=== PATIENT | female | born 2000 | race African-American/Black ===

== ENCOUNTER → 2020-08-26 | Outpatient (CLI) | payer OTHER ==
--- NOTE | 2020-08-26 22:57 | REP ---
INDICATION: 35+ GROWTH COMPARISON: None. TECHNIQUE: Transabdominal obstetrical ultrasound with color Doppler evaluation. FINDINGS: Examination demonstrates a single live intrauterine in cephalic presentation. motion is identified by technologist. Placenta is noted anterior and grade 2 without evidence for placenta previa or abruption. Amniotic fluid volume is low-normal (VERONICA equals 8 cm). Selected gestational age: 36 weeks 0 days with RACHEL 09/23/2020. Gestational age by current measurements 34 weeks 6 days with RACHEL 10/01/2020. FHR equals 122 beats per minute. BPD: 8.8 cm at 35 weeks 2 days HC: 31.4 cm at 35 weeks 1 day AC: 29.6 cm at 33 weeks 4 days FL: 7.1 cm at 36 weeks 4 days HL: 6.0 cm at 34 weeks 4 days HC/AC: 1.06 Estimated weight 2470 grams (17thpercentile). Umbilical artery SD ratio: 2.58 (1.64-3.51) IMPRESSION: Examination suggests small for gestational age fetus with estimated weight falling within normal range. <Electronically signed by Jose Bui > 08/26/20 [id number]
== END ==
LOC: M RAD 13:15
PROVIDERS: ATTEND Registered Nurse
DX: Z36.89 Encounter for other specified antenatal screening (principal)

== ENCOUNTER 2020-09-12 11:52 | Inpatient (IN) | payer OTHER ==
[2020-09-12] VITALS (7 sets, daily range): BP systolic 111–122; BP diastolic 62–80
[~2020-09-12] VITALS: Ht 177.8 cm; Wt 98.9 kg
[2020-09-12] MEDS ORDERED: PREN29CH2 PO (12:27)
[2020-09-12] MEDS ORDERED: LACTATED RINGER'S 1000 ML IV STA (12:41)
[2020-09-12] MEDS ORDERED: LIDOCAINE 1% MDV 20ML VIAL INFIL PRN (12:45)
[2020-09-12] MEDS ORDERED: OXYTOCIN DRIP 30 UNITS in IV 1 EA IV PRN ×4 (12:45)
[2020-09-12] MEDS ORDERED: CARBOPROST TROMETHAMINE 250 MCG/ML AMP IM PRN (12:45)
[2020-09-12] MEDS ORDERED: METHYLERGONOVINE MALEATE 0.2 MG/ML VIAL (J2210) IM PRN (12:45)
[2020-09-12] MEDS ORDERED: TRANEXAMIC ACID INJection 1,000 MG in NS 100 ML IV PRN (12:45)
[2020-09-12] MEDS: LR 1,000 ML IV SCH ×2 (13:43→20:45)
[2020-09-12 13:58] LABS: BASO % 0.1 % (0.0-1.0); EOS % 0.4 % (0.0-3.0); HEMATOCRIT 35.3 % (36.0-47.0); HEMOGLOBIN 11.8 g/dl (12.0-15.5); LYMPH # 1.4 10^3/uL (1.5-5.0); LYMPH % 14.6 % (24.0-44.0); MEAN CORPUSCULAR HEMOGLOBIN 29.6 pg (27.0-33.0); MEAN CORPUSCULAR HGB CONC 33.4 g/dl (32.0-36.5); MEAN CORPUSCULAR VOLUME 88.5 fl (80.0-96.0); MONO # 0.8 10^3/uL (0.0-0.8); NEUTROPHILS # 7.3 10^3/uL (1.5-8.5); NEUTROPHILS % 76.6 % (36.0-66.0); PLATELET COUNT, AUTOMATED 253 10^3/uL (150-450); RED BLOOD COUNT 3.99 10^6/uL (4.00-5.40); WHITE BLOOD COUNT 9.5 10^3/uL (4.0-10.0)
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
--- NOTE | 2020-09-12 15:56 | IPNPDOC ---
Obstetrical Progress Note Date of Service Sep 12, 2020 Subjective Starting to feel more cramping. Nice bulb still in place. Spouse and mother at bedside for support. Assessment and Plan Additional Comments A/P 20yo G3 P 0 at 38+4 wks gestation presents to L&D for induction of labor due to IUGR. B positive/GBS negative/RI/ FHR Cat 1 tracing, reassuring. Now on intermittent monitoring. Double lumen nice bulb still in place, plan to start pitocin once it is out. Address pain needs as they arise. Reviewed option for IV pain medication. Anticipate Consult physician service as needed. Report given to Dr. Aleman for transfer of care at end of shift. REN WALTON CNM Sep 12, 2020 15:56
[2020-09-13] VITALS (36 sets, daily range): BP systolic 98–141; BP diastolic 51–88
--- NOTE | 2020-09-13 08:25 | IPNPDOC ---
Obstetrical Progress Note Date of Service Sep 13, 2020 Subjective Pt OOB returning from shower, denies pain Objective Vital Signs Date Time Temp Pulse Resp B/P (MAP) Pulse Ox O2 Delivery O2 Flow Rate FiO2 09/13/20 00:06 94 118/71 (87) 09/12/20 18:56 20 09/12/20 18:30 99.3 Tocometer Contractions: Yes Frequency: irregular Strength: palpated as mild Sterile Vaginal Examination Dilation: None (cervical catheter in place) Assessment and Plan Age: 20 : 3 Term: 0 Pre-term: 0 Abortions: 2 Livin EGA at Admission: 38 (+5) Group B Streptococcus: Negative Anticipate: Vaginal Delivery Additional Comments OOB moving after shower, may eat breakfast, NST after eating, encourage oral hydration, consider additional induction agents, evaluate for change as indicated, anticipate vaginal delivery LIZZY FAULKNER CNM Sep 13, 2020 08:25
[2020-09-13] MEDS ORDERED: OXYTOCIN DRIP 30 UNITS in IV 1 EA IV SCH (09:35)
--- NOTE | 2020-09-13 09:47 | IPNPDOC ---
Obstetrical Progress Note Date of Service Sep 13, 2020 Subjective Pt states feeling comfortable. Reviewed counseling on additional methods of induction including cytotec and pitocin with expressed understanding by patient and her spouse. Objective Vital Signs Date Time Temp Pulse Resp B/P (MAP) Pulse Ox O2 Delivery O2 Flow Rate FiO2 09/13/20 00:06 94 118/71 (87) 09/12/20 18:56 20 09/12/20 18:30 99.3 Assessment Heart Rate (FHR): 130 Variability: Moderate Accelerations: Positive Decelerations: None Heart Rate Tracing: Category I Tocometer Contractions: Yes Frequency: irregular Duration: greater than 60 seconds Strength: palpated as mild, resting tone palp/soft Sterile Vaginal Examination Dilation: 5 cm (cervical catheter came out with gentle traction prior to exam) Effacement (%): 80% Station: -2 Cervical Consistency: Soft Cervical Position: Middle Postion/Presentation: Cephalic presentation Assessment and Plan Age: 20 : 3 Term: 0 Pre-term: 0 Abortions: 2 Livin Weeks & Days 38+5 Status: Reassuring Group B Streptococcus: Negative Anticipate: Vaginal Delivery Additional Comments LR @125ml/hr, continuous efm x2, initiate pitocin induction and titrate per protocol, monitor for change in or maternal status, encourage frequent maternal movement, anticipate vaginal delivery LIZZY FAULKNER CNM Sep 13, 2020 09:47
[2020-09-13] MEDS: LR 1,000 ML IV SCH ×3 (12:45→20:45)
--- NOTE | 2020-09-13 14:10 | IPNPDOC ---
Obstetrical Progress Note Date of Service Sep 13, 2020 Subjective Pt states feeling increased discomfort with contractions Objective Vital Signs Date Time Temp Pulse Resp B/P (MAP) Pulse Ox O2 Delivery O2 Flow Rate FiO2 09/13/20 13:37 74 117/75 (89) 09/13/20 10:57 98.3 16 Room Air Assessment Heart Rate (FHR): 130 Variability: Moderate Accelerations: Positive Decelerations: None Heart Rate Tracing: Category I Tocometer Contractions: Yes Frequency: regular (q5 min on 16mu pitocin) Duration: greater than 60 seconds Strength: palpated as moderate, resting tone palp/soft Sterile Vaginal Examination Dilation: 7 cm (AROM clear with exam) Effacement (%): 90% Station: -2 Cervical Consistency: Soft Cervical Position: Posterior Postion/Presentation: Cephalic presentation Assessment and Plan Age: 20 : 3 Term: 0 Pre-term: 0 Abortions: 2 Livin Status: Reassuring Group B Streptococcus: Negative Anticipate: Vaginal Delivery Additional Comments lr @125ml/hr, pitocin decreased to 8mu after AROM clear, continue to titrate per protocol, continuous efm x2, monitor for change in or maternal status, encourage frequent maternal movement, anticipate vaginal delivery. LIZZY FAULKNER CNM Sep 13, 2020 14:10
[2020-09-13] MEDS ORDERED: FENTANYL 2MCG/ML ROPIVACAINE 0.2% IN 0.9% NACL 100ML IVBAG As Ordered ONE (16:17)
--- NOTE | 2020-09-13 16:17 | IPNPDOC ---
Obstetrical Progress Note Date of Service Sep 13, 2020 Subjective Pt c/o pressure and urge to push Objective Vital Signs Date Time Temp Pulse Resp B/P (MAP) Pulse Ox O2 Delivery O2 Flow Rate FiO2 09/13/20 15:16 77 122/78 (93) 09/13/20 14:58 98.2 20 Room Air Assessment Heart Rate (FHR): 120 Variability: Moderate Accelerations: Positive Decelerations: None Heart Rate Tracing: Category I Tocometer Contractions: Yes Frequency: every 2-5 min. (on pitocin induction) Duration: greater than 60 seconds Strength: palpated as moderate, resting tone palp/soft Sterile Vaginal Examination Dilation: 5 cm (stretches to 7cm) Effacement (%): 90% Station: -2 Cervical Consistency: Soft Cervical Position: Posterior Postion/Presentation: Cephalic presentation Assessment and Plan Age: 20 : 3 Term: 0 Pre-term: 0 Abortions: 2 Livin Status: Reassuring Group B Streptococcus: Negative Anticipate: Vaginal Delivery Additional Comments Pt requesting epidural anesthesia. LR bolus 1000ml then return to 125ml/hr, consult anesthesia, continue to titrate pitocin augmentation pre protocol, continuous efm x2, monitor for change in or maternal status, evaluate for change as indicated, anticipate vaginal delivery. LIZZY FAULKNER CNM Sep 13, 2020 16:17
[2020-09-13] MEDS ORDERED: EPIDURAL/PCA KEYS XX PRN (16:30)
[2020-09-13] MEDS ORDERED: REFRIGERATOR IV KEYS XX PRN (16:30)
[2020-09-13] MEDS ORDERED: LACTATED RINGER'S 1000 ML IV PRN (16:30)
[2020-09-13] MEDS ORDERED: diphenhydrAMINE 50MG/ML VIAL (J1200) IV PRN (16:30)
[2020-09-13] MEDS ORDERED: EPIDURAL COMMENT XX SCH (16:30)
[2020-09-13] MEDS ORDERED: ONDANSETRON 4MG/2ML VIAL IV PRN (16:30)
[2020-09-13] MEDS ORDERED: NALOXONE INJ 0.4MG/1ML VIAL (J2310 PER 1MG) IV PRN (16:30)
[2020-09-13] MEDS: FENTANYL/ROPIVACAINE/NACL BAG 100 ML EPIDURAL SCH (17:15)
[2020-09-13] MEDS: ePHEDrine SULFATE 25 MG/5 ML(5MG/ML) SYRINGE IV PRN ×2 (19:46→20:16)
[2020-09-13] MEDS ORDERED: ACETAMINOPHEN TAB 650MG DOSE (2X325MG) PO PRN (23:00)
[2020-09-13] MEDS ORDERED: DOCUSATE SODIUM 100MG CAPSULE PO PRN (23:00)
[2020-09-13] MEDS ORDERED: IBUPROFEN 600MG TAB PO PRN (23:00)
--- NOTE | 2020-09-13 23:07 | DNPDOC ---
[facility] Delivery Note Delivery Note DATE OF DELIVERY: 09/13/20 PREDELIVERY DIAGNOSIS: 38+5 weeks gestation. growth restriction, uncomplicated. POST DELIVERY DIAGNOSIS: Same + delivered. PROCEDURE: Induction of labor. Vaginal delivery. CATTLE DRIVER: Dr. Castro Welsh DO ANESTHESIA: epidural. ESTIMATED BLOOD LOSS: 150 mL. FINDINGS: 3090g, Score 8/9, nuchal cord times 0. DELIVERY SUMMARY: Ms. Holly is a 20yo at 38+5 who underwent induction of labor for uncomplicated growth restriction with a nice balloon and pitocin. She progressed to AL/C/+3 and the anterior lip was easily reduced with light maternal pushing. She then pushed to deliver the head followed by the body without complications. There was a left compound posterior arm. The baby had spontaneous movement and cry. The cord clamping was delayed 60s then cut by the father of the baby. Cord blood and gasses were obtained. The placenta delivered in-tact with gentle downward traction. The uterus was firm and bleeding scant with pitocin. There was a small pat-urethral abrasion that did not require repair. The sponge, lap, and needle counts were correct. There were no complications. CASTRO WELSH DO Sep 13, 2020 23:07
[2020-09-13 23:12] LABS: CORD GAS ABE A -4.3; CORD GAS ABE V -2.8; CORD GAS HCO3 A 22.4 MEQ/L; CORD GAS HCO3 V 21.9 MEQ/L; CORD GAS O2 SAT A 64.6 %; CORD GAS O2 SAT V 73.3 %; CORD GAS PCO2 A 47.3 mmHg; CORD GAS PCO2 V 37.8 mmHg; CORD GAS PH A 7.294 UNITS; CORD GAS PH V 7.38 UNITS; CORD GAS PO2 V 30.1 mmHg; CORD GAS SBC A 20.2 MEQ/L; CORD GAS SBC V 21.6 MEQ/L; CORD GAS TCO2 A 23.9 MEQ/L
[2020-09-14 00:45] VITALS: BP 138/78
[2020-09-14] MEDS: IBUPROFEN 800 MG TAB PO PRN ×2 (03:44→13:43)
[2020-09-14] MEDS: FENTANYL/ROPIVACAINE/NACL BAG 100 ML EPIDURAL SCH (03:52)
[2020-09-14] MEDS: LR 1,000 ML IV SCH (04:45)
[2020-09-14 06:00] VITALS: BP 117/56
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
[2020-09-14] MEDS: ACETAMINOPHEN 500 MG TAB PO PRN ×2 (07:02→15:36)
[2020-09-14] MEDS: PRENATAL VITAMINS CHEWABLE TABLET PO SCH (08:51)
[2020-09-15] MEDS: IBUPROFEN 800 MG TAB PO PRN (01:01)
[2020-09-15 06:00] VITALS: BP 109/73
[2020-09-15] MEDS ORDERED: IBUP80TA PO (07:00)
[2020-09-15] MEDS ORDERED: ACET1TAB55 PO (07:00)
--- NOTE | 2020-09-15 07:02 | DS.PDOC ---
Discharge Summary General Date of Admission Sep 12, 2020 at 11:52 Date of Discharge September 15, 2020 Discharge Summary HOSPITAL COURSE: Ms. Holly is a 20 yo G3 now P1 who underwent an uncomplicated on 13Sep2020 after being admitted for an IOL for IUGR Her course was unremarkable. On her day of discharge she met all appropriate discharge criteria. She was ambulating, voiding, tolerating a regular diet, and had minimal lochia. DISCHARGE MEDICATIONS: Please see below. ALLERGIES: Please see below. PHYSICAL EXAMINATION ON DISCHARGE: VITAL SIGNS: Please see below. GENERAL: AAOX3, NAD ABDOMINAL EXAMINATION: Fundus firm at U-2. No fundal tenderness EXTREMITIES: No edema PSYCHIATRIC EXAMINATION: Affect appropriate LABORATORY DATA: Please see below. ACTIVITY: Pelvic rest for 6 weeks DIET: Regular DISCHARGE PLAN: Discharge home DISPOSITION: Discharge home on 15Sep2020 DISCHARGE INSTRUCTIONS: 1. Nothing in the vagina for 6 weeks ITEMS TO FOLLOWUP ON ON OUTPATIENT: 1. Call to schedule a visit for 6 weeks post delivery DISCHARGE CONDITION: Stable. TIME SPENT ON DISCHARGE: Greater than 20 minutes. Kerwin Gordillo DO Vital Signs/I&Os Vital Signs Date Time Temp Pulse Resp B/P (MAP) Pulse Ox O2 Delivery O2 Flow Rate FiO2 09/15/20 06:00 97.5 66 18 109/73 (85) 98 Room Air Discharge Medications Scheduled No115/Iron/Folic Acid ( 19 Chewable Tablet) 1 Each Tab.chew, 1 TAB PO DAILY, (Reported) Scheduled PRN Acetaminophen (Acetaminophen) 325 Mg Tablet, 650 MG PO Q4HP PRN for PAIN LEVEL 1-5 Ibuprofen (Ibuprofen) 800 Mg Tablet, 800 MG PO Q8HP PRN for PAIN LEVEL 6-10 Allergies Coded Allergies: No Known Allergies (Unverified , 09/12/20) KERWIN GORDILLO DO Sep 15, 2020 07:02
[2020-09-15] MEDS: PRENATAL VITAMINS CHEWABLE TABLET PO SCH (09:00)
== END 2020-09-15 13:30 | disposition home or self-care (01) | DRG 807 ==
LOC: M LDI 11:52 → M OBS 09-14 00:39
PROVIDERS: ADMIT Advanced Practice Midwife; ATTEND Obstetrics & Gynecology
PROC: 3E033VJ Introduction of Other Hormone into Peripheral Vein, Percutaneous Approach (ICD-10-PCS; 2020-09-12)
PROC: 10E0XZZ Delivery of Products of Conception, External Approach (ICD-10-PCS; principal; 2020-09-13)
PROC: 10907ZC Drainage of Amniotic Fluid, Therapeutic from Products of Conception, Via Natural or Artificial Opening (ICD-10-PCS; 2020-09-13)
DX: O36.5930 Maternal care for other known or suspected poor fetal growth, third trimester, not applicable or unspecified (principal); Z37.0 Single live birth; Z3A.38 38 weeks gestation of pregnancy; O64.5XX0 Obstructed labor due to compound presentation, not applicable or unspecified

== ENCOUNTER 2020-11-14 17:16 | Emergency (ER) | payer OTHER ==
[~2020-11-14] VITALS: Ht 177.8 cm; Wt 94.3 kg
[~2020-11-14 17:16] MED LIST: ACET1TAB55 PO; IBUP80TA PO; PREN29CH2 PO
[2020-11-14] MEDS ORDERED: KETOROLAC 30 MG/ML 1ML VIAL IV ONE (19:30)
[2020-11-14] MEDS ORDERED: METOCLOPRAMIDE INJ 10MG/2ML VIAL (J2765 PER 1) IV ONE (19:30)
[2020-11-14] MEDS ORDERED: diphenhydrAMINE 50MG/ML VIAL (J1200) IV ONE (19:30)
[2020-11-14] MEDS ORDERED: NS 1,000 ML IV ONE (19:30)
[2020-11-14] MEDS ORDERED: ACETAMINOPHEN 500 MG TAB PO ONE (19:30)
[2020-11-14 19:59] LABS: BASO % 0.5 % (0.0-1.0); EOS # 0.1 10^3/uL (0.0-0.5); EOS % 1.7 % (0.0-3.0); HEMATOCRIT 40.4 % (36.0-47.0); HEMOGLOBIN 13.3 g/dl (12.0-15.5); LYMPH # 2.5 10^3/uL (1.5-5.0); LYMPH % 30.8 % (24.0-44.0); MEAN CORPUSCULAR HEMOGLOBIN 29.3 pg (27.0-33.0); MEAN CORPUSCULAR HGB CONC 32.9 g/dl (32.0-36.5); MONO # 0.7 10^3/uL (0.0-0.8); NEUTROPHILS # 4.8 10^3/uL (1.5-8.5); NEUTROPHILS % 57.9 % (36.0-66.0); PLATELET COUNT, AUTOMATED 312 10^3/uL (150-450); RED BLOOD COUNT 4.54 10^6/uL (4.00-5.40); WHITE BLOOD COUNT 8.2 10^3/uL (4.0-10.0)
[2020-11-14 20:12] LABS: APPEARANCE, URINE CLEAR (CLEAR); BACTERIA, URINE AUTO NEGATIVE (NEGATIVE); BILIRUBIN, URINE AUTO NEGATIVE (NEGATIVE); BLOOD, URINE BLOOD 2+ (NEGATIVE); COLOR, URINE YELLOW (YELLOW); GLUCOSE, URINE (UA) AUTO NEGATIVE (NEGATIVE); KETONE, URINE AUTO NEGATIVE (NEGATIVE); LEUKOCYTE ESTERASE, URINE AUTO NEGATIVE (NEGATIVE); MUCUS, URINE SMALL (NEGATIVE); NITRITE, URINE AUTO NEGATIVE (NEGATIVE); PROTEIN, URINE AUTO NEGATIVE (NEGATIVE); RBC, URINE AUTO 27 /HPF (0-3); SPECIFIC GRAVITY URINE AUTO 1.021 (1.002-1.035); SQUAMOUS EPITHELIAL CELL UR AU 0 /HPF (0-6); UROBILINOGEN, URINE AUTO 0.2 mg/dL (0.0-2.0); WBC, URINE AUTO 1 /HPF (0-3)
--- NOTE | 2020-11-14 21:28 | REPVR ---
PROCEDURE INFORMATION: Exam: CT Lumbar Spine Without Contrast Exam date and time: 11/14/2020 7:48 PM Age: 20 years old Clinical indication: Low back pain; Additional info: Low back pain radiating to rle TECHNIQUE: Imaging protocol: Computed tomography images of the lumbar spine without contrast. Radiation optimization: All CT scans at this facility use at least one of these dose optimization techniques: automated exposure control; mA and/or kV adjustment per patient size (includes targeted exams where dose is matched to clinical indication); or iterative reconstruction. COMPARISON: US OBS SINGEL GEST 08/26/2020 1:28 PM FINDINGS: Vertebrae: No acute fracture. Normal alignment. L1-L2: No significant disc protrusion. No severe spinal canal stenosis. No significant neural foraminal narrowing. L2-L3: No significant disc protrusion. No severe spinal canal stenosis. No significant neural foraminal narrowing. L3-L4: No significant disc protrusion. No severe spinal canal stenosis. No significant neural foraminal narrowing. L4-L5: No significant disc protrusion. No severe spinal canal stenosis. No significant neural foraminal narrowing. L5-S1: No significant disc protrusion. No severe spinal canal stenosis. No significant neural foraminal narrowing. Soft tissues: Unremarkable. IMPRESSION: Unremarkable spine. Electronically signed by: Clovis Mendoza On 11/14/2020 21:28:01 PM
[2020-11-14 22:14] VITALS: BP 114/68
== END 2020-11-14 22:16 | disposition home or self-care (01) ==
LOC: M ED 17:16
DX: M54.16 Radiculopathy, lumbar region (principal); M54.41 Lumbago with sciatica, right side; R51.9 Headache, unspecified; K59.00 Constipation, unspecified
CPT/HCPCS: 72131; 80047; 81001; 85025; 96361; 96374; 96375; 99284; J1885; J2765